=== PATIENT | female | born 1955 | race Caucasian/White ===

== ENCOUNTER 2022-05-21 17:44 | Emergency (ER) | payer MEDICARE, SELFPAY ==
[2022-05-21 17:58] VITALS: BP 159/79; PULSE 96; RESP 12; TEMP 37.3; O2SAT 94; BMI 25.3
--- NOTE | 2022-05-21 19:49 | ECG_ITS ---
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 Measurements Intervals [place] Rate: 79 P: -11 ME: 163 QRS: -10 QRSD: 93 T: 46 QT: 348 QTc: 399 Interpretive Statements SINUS RHYTHM No previous ECG available for comparison Electronically Signed On 05-22-2022 18:57:10 CDT by Fernando Gonzalez M.D. [id number]
--- NOTE | 2022-05-21 19:49 | CTR_ITS ---
PROCEDURE INFORMATION: Exam: CT Head Without Contrast Exam date and time: 05/21/2022 8:02 PM Age: 67 years old Clinical indication: Numbness / parasthesia; Bilateral; Patient HX: Tongue numbness, dizziness TECHNIQUE: Imaging protocol: Computed tomography of the head without contrast. Radiation optimization: All CT scans at this facility use at least one of these dose optimization techniques: automated exposure control; mA and/or kV adjustment per patient size (includes targeted exams where dose is matched to clinical indication); or iterative reconstruction. COMPARISON: No relevant prior studies available. RADIATION DOSE METRICS: Total DLP (mGy-cm): 847.24 FINDINGS: Brain: No hemorrhage. No edema. No significant white matter disease. No mass effect. Cerebral ventricles: No ventriculomegaly. Paranasal sinuses: Mucosal thickening of the left sphenoid sinus. The rest of the paranasal sinuses are well pneumatized. Mastoid air cells: Visualized mastoid air cells are well aerated. Bones/joints: Unremarkable. No acute fracture. Soft tissues: Unremarkable. Vasculature: Single midline vessel with wall calcifications noted in the anterior interhemispheric region between the frontal lobes which is suspected to reflect variant vascular anatomy/azygous VIRAJ. CT/CT head wo con* [id number] IMPRESSION: No acute intracranial abnormality.
--- NOTE | 2022-05-21 20:00 | W.ED.WEAKNES ---
HPI - Weakness General: Chief complaint: Weakness Stated complaint: mouth tingling episodes Time Seen by Provider: 05/21/22 19:46 Source: patient Mode of arrival: ambulatory Limitations: no limitations History of Present Illness: 67-year-old female states that she had an episode today roughly 2-3 o'clock where she had some numbness in her tongue and then it went to her hands. States it lasted roughly 5 minutes and then is resolved. States that since then she just had some slight fatigue and lethargy she denies any headache denies any focal weakness denies any change of her vision denies any more paresthesias. She denies worsening improving factors. Associated symptoms: Denies chest pain, chills, dysuria, easy bruising, fever(s), nausea or vomiting Review of Systems Const: Denies: fever(s), chills, body aches or change in appetite Eyes: Denies: blurry vision or eye discomfort ENMT: Denies: throat pain or dental pain Card: Denies: chest pain Resp: Denies: dyspnea GI: Denies: abdominal pain, nausea, vomiting or diarrhea : Denies: dysuria Musc: Denies: neck pain or back pain Skin/Breast: Denies: rash Neuro: Reports: sensory changes Psych: Denies: depression Brain/Lymph: Denies: easy bruising All/Imm: Denies: urticaria PFSH ED PFSH: Medical History (Updated 05/21/22 @ 21:20 by Robel Ulloa MD) No pertinent past medical history Social History (Updated 05/21/22 @ 20:01 by Robel Ulloa MD) Smoking and tobacco status: current every day smoker Physical Exam Const: COMMON NORMALS: no acute distress, patient oriented x3 and healthy appearing HENMT: COMMON NORMALS: normocephalic and atraumatic HEAD & SCALP: normocephalic and atraumatic Eye: COMMON NORMALS: Equal, round and reactive pupils present and EOMs intact bilaterally PUPIL: Yes Equal, round and reactive pupils present Neck/C-Spine: COMMON NORMALS: full ROM and supple Chest: COMMONS NORMALS: normal inspection of the chest and normal palpation of entire chest wall Resp: COMMON NORMALS: normal respiratory effort, No retractions, No use of accessory muscles and clear to auscultation bilaterally AUSCULTATION: clear to auscultation bilaterally Cardio: COMMON NORMALS: regular rate, regular rhythm and No murmurs present (Cardio) RATE: regular rate RHYTHM: regular rhythm GI: COMMON NORMALS: Normal to inspection, nondistended, normoactive bowel sounds present, Soft to palpation, non-tender and no masses PALPATION: Yes Soft to palpation Extremity: COMMON NORMALS: normal to inspection and full ROM Neuro: COMMON NORMALS: patient oriented x3, moves all extremities and no focal motor deficits Psych: COMMON NORMALS: mental status grossly normal, Normal thought process present and cooperative THOUGHT PROCESS: Normal thought process present Skin: COMMON NORMALS: no rashes or lesions noted and no wounds GENERAL SKIN EXAM: no rashes or lesions noted Course Vital Signs: Vital signs: Vital Signs Temperature 99.2 F 05/21/22 17:58 Pulse Rate 96 05/21/22 17:58 Respiratory Rate 12 05/21/22 17:58 Blood Pressure 159/79 05/21/22 17:58 Pulse Oximetry 94 05/21/22 17:58 MDM - Weakness Medical Decision Making Patient presents here with a short period of paresthesias completely resolved she has no neurologic symptoms currently her head CT blood work are all normal she is stable for discharge she is to follow-up with her PCP in 3 to 5 days return if worsening she understands agrees to plan. Lab Data : 05/21/22 20:15 05/21/22 20:[address] 05/21/22 19:49 IMPRESSION: No acute intracranial abnormality. Laboratory Results WBC 9.9 10^3/uL (4.0-10.0) 05/21/22 20:15 RBC 4.32 10^6/uL (4.1-5.3) 05/21/22 20:15 Hgb 13.7 g/dL (11.5-15.3) 05/21/22 20:15 Hct 38.7 % (37.0-47.0) 05/21/22 20:15 MCV 89.6 fl (81-99) 05/21/22 20:15 MCH 31.7 pg (28.0-34.0) 05/21/22 20:15 MCHC 35.4 g/dL (30.0-36.0) 05/21/22 20:15 RDW 13.5 % (12.1-15.1) 05/21/22 20:15 Plt Count 211 10^3/cmm (130-400) 05/21/22 20:15 MPV 10.7 fL (7.4-10.4) H 05/21/22 20:15 Neut % (Auto) 69.5 % 05/21/22 20:15 Lymph % (Auto) 22.3 % 05/21/22 20:15 [place] % (Auto) 7.3 % 05/21/22 20:15 Eos % (Auto) 0.3 % 05/21/22 20:15 Baso % (Auto) 0.3 % 05/21/22 20:15 Neut # (Auto) 6.91 10^3/uL (1.8-7.7) 05/21/22 20:15 Lymph # (Auto) 2.2 10^3/uL (0.8-4.8) 05/21/22 20:15 [place] # (Auto) 0.7 10^3/uL (0.2-0.9) 05/21/22 20:15 Eos # (Auto) 0.0 10^3/uL (0.0-0.8) 05/21/22 20:15 Baso # (Auto) 0.0 10^3/uL (0.0-0.1) 05/21/22 20:15 Nucleated RBC % (auto) 0 % 05/21/22 20:15 Nucleated RBCs # 0.0 /100WBC 05/21/22 20:15 Sodium 138 mmol/L (136-145) 05/21/22 20:15 Potassium 3.9 mmol/L (3.5-5.1) 05/21/22 20:15 Chloride 103 mmol/L (98-107) 05/21/22 20:15 Carbon Dioxide 22 mmol/L (22-29) 05/21/22 20:15 Anion Gap 16.9 (5-19) 05/21/22 20:15 BUN 20 mg/dL (8-23) 05/21/22 20:15 Creatinine 0.6 mg/dL (0.5-0.9) 05/21/22 20:15 GFR Calculation 100.3 mL/min (90-130) 05/21/22 20:15 Glucose 110 mg/dL (65-115) 05/21/22 20:15 Calculated Osmolality 289 mOsm/kg (285-295) 05/21/22 20:15 Calcium 9.5 mg/dL (8.5-10.5) 05/21/22 20:15 Total Bilirubin 0.2 mg/dL (0.15-1.2) 05/21/22 20:15 AST 23 U/L (0-32) 05/21/22 20:15 ALT 22 U/L (0-33) 05/21/22 20:15 Alkaline Phosphatase 108 IU/L (35-105) H 05/21/22 20:15 Total Protein 7.3 g/dL (6.6-8.7) 05/21/22 20:15 Albumin 4.3 g/dL (3.5-5.2) 05/21/22 20:15 Globulin 3.0 g/dL (1.3-4.6) 05/21/22 20:15 EKG Data EKG 1: I personally reviewed and interpreted this EKG as follows: EKG interpretation date: 05/21/22 EKG interpretation time: 20:38 Interpretation: nsr hr [address] or t wave abnormalities qrs 93 qtc 382 Discharge Plan Discharge Patient Disposition: Home Clinical Impression: Paresthesia Discharge Orders: Discharge ED (Routine); Ordered 05/21/22 Ordered By: Robel Ulloa Discharge Diet: Advance as tolerated Discharge Activity: Resume usual activity Patient Instructions: Paresthesia (ED) Coding Level of Care Code ED Vp [employer] Digital Marketing for Chg Fwd Exam Comprehensive
[2022-05-21 20:26] LABS: Basophils % 0.3 %; Eosinophils % 0.3 %; Hematocrit 38.7 % (37.0-47.0); Hemoglobin 13.7 g/dL (11.5-15.3); Lymphocytes # 2.2 10^3/uL (0.8-4.8); Lymphocytes % 22.3 %; Mean Corpuscular HGB Conc 35.4 g/dL (30.0-36.0); Mean Corpuscular Hemoglobin 31.7 pg (28.0-34.0); Mean Corpuscular Volume 89.6 fl (81-99); Mean Platelet Volume 10.7 fL (7.4-10.4); Monocytes # 0.7 10^3/uL (0.2-0.9); Monocytes % 7.3 %; Neutrophils # 6.91 10^3/uL (1.8-7.7); Neutrophils % 69.5 %; Nucleated Red Blood Cells % 0 %; Platelet Count 211 10^3/cmm (130-400); Red Blood Count 4.32 10^6/uL (4.1-5.3); Red Cell Distribution Width 13.5 % (12.1-15.1); White Blood Count 9.9 10^3/uL (4.0-10.0)
[2022-05-21 20:48] LABS: Alanine Aminotransferase 22 U/L (0-33); Albumin Level 4.3 g/dL (3.5-5.2); Alkaline Phosphatase 108 IU/L (35-105); Anion Gap 16.9 (5-19); Aspartate Amino Transferase 23 U/L (0-32); Blood Urea Nitrogen 20 mg/dL (8-23); Calcium 9.5 mg/dL (8.5-10.5); Carbon Dioxide 22 mmol/L (22-29); Chloride 103 mmol/L (98-107); Glomerular Filtration Rate 100.3 mL/min (90-130); Glucose 110 mg/dL (65-115); Osmolality Calculated 289 mOsm/kg (285-295); Potassium 3.9 mmol/L (3.5-5.1); Sodium 138 mmol/L (136-145); Total Bilirubin 0.2 mg/dL (0.15-1.2); Total Protein 7.3 g/dL (6.6-8.7)
== END 2022-05-21 21:31 | disposition home or self-care (01) ==
PROVIDERS: Emergency Provider Emergency Medicine
DX: R20.2 Paresthesia of skin (principal); F17.210 Nicotine dependence, cigarettes, uncomplicated
CPT/HCPCS: 70450; 80053; 85025; 93005; 99283

== ENCOUNTER → 2022-09-24 11:34 | Outpatient (BNVA) | payer MEDICARE, SELFPAY | PROVIDERS: PCP Nurse Practitioner Family; Visit Provider Nurse Practitioner Family | DX: I10 Essential (primary) hypertension (principal) | CPT/HCPCS: 80053; 80061 ==

== ENCOUNTER → 2023-01-09 08:44 | Outpatient (BNVA) | payer MEDICARE, SELFPAY | PROVIDERS: PCP Nurse Practitioner Family; Visit Provider Nurse Practitioner Family | DX: I10 Essential (primary) hypertension (principal); E78.5 Hyperlipidemia, unspecified; H65.00 Acute serous otitis media, unspecified ear | CPT/HCPCS: 80053; 80061 ==

== ENCOUNTER → 2023-01-16 09:07 | Outpatient (BNVA) | payer MEDICARE, SELFPAY | PROVIDERS: PCP Nurse Practitioner Family; Visit Provider Nurse Practitioner Family | DX: R73.09 Other abnormal glucose (principal); E78.5 Hyperlipidemia, unspecified | CPT/HCPCS: 83036 ==

== ENCOUNTER → 2023-03-13 09:40 | Outpatient (BNVA) | payer MEDICARE, SELFPAY | PROVIDERS: PCP Nurse Practitioner Family; Visit Provider Nurse Practitioner Family | DX: M79.672 Pain in left foot (principal); I10 Essential (primary) hypertension; E78.5 Hyperlipidemia, unspecified | CPT/HCPCS: 80061 ==

== ENCOUNTER 2023-03-17 09:21 | Outpatient (CLI) | payer MEDICARE, SELFPAY ==
--- NOTE | 2023-03-17 09:31 | XR_ITS ---
WS: [id number] Exam: XR foot LT min 3V* [id number] Date/Time of Exam: 03/17/2023 9:48 AM Reason For Exam: M79.672 - Pain in left foot No fracture or dislocation. Mild bunion. Small heel spurs noted. Soft tissues are unremarkable. XR/XR foot LT min 3V* [id number] IMPRESSION: 1. Mild bunion. 2. No fracture or other significant finding.
== END 2023-03-17 09:22 | disposition home or self-care (01) ==
LOC: RAD 09:26
PROVIDERS: PCP Nurse Practitioner Family; Visit Provider Nurse Practitioner Family
DX: M79.672 Pain in left foot (principal); M21.612 Bunion of left foot
CPT/HCPCS: 73630

== ENCOUNTER → 2023-07-03 08:38 | Outpatient (BNVA) | payer MEDICARE, SELFPAY | PROVIDERS: PCP Nurse Practitioner Family; Visit Provider Nurse Practitioner Family | DX: I10 Essential (primary) hypertension (principal); E78.5 Hyperlipidemia, unspecified | CPT/HCPCS: 80053; 80061 ==

== ENCOUNTER → 2023-10-08 08:55 | Outpatient (BNVA) | payer MEDICARE, SELFPAY | PROVIDERS: PCP Nurse Practitioner Family; Visit Provider Nurse Practitioner Family | DX: I10 Essential (primary) hypertension (principal); E78.5 Hyperlipidemia, unspecified | CPT/HCPCS: 80053; 80061 ==

== ENCOUNTER → 2024-04-22 08:35 | Outpatient (BNVA) | payer MEDICARE, SELFPAY | PROVIDERS: PCP Nurse Practitioner Family; Visit Provider Nurse Practitioner Family | DX: I10 Essential (primary) hypertension (principal) | CPT/HCPCS: 80053; 80061 ==

== ENCOUNTER → 2024-10-14 11:43 | Outpatient (BNVA) | payer MEDICARE, SELFPAY | PROVIDERS: PCP Nurse Practitioner Family; Visit Provider Nurse Practitioner Family | DX: I10 Essential (primary) hypertension (principal) | CPT/HCPCS: 80053; 80061 ==

== ENCOUNTER 2024-12-23 09:49 | Outpatient (CLI) | payer MEDICARE, SELFPAY ==
--- NOTE | 2024-12-23 10:30 | USCV_ITS ---
Anastasia Bourne Age: 69 Gender: F : 1955 Exam Date: 12/23/2024 09:58 Ordering Phys: Esther Christopher-Sameera SANTAMARIA Technologist: CT Exam Location: [facility] [place] Indication: Risk Factors: Previous Vascular Surgery: Right Brachial BP: / Left Brachial BP: / Right Left Velocity (cm/s) Spectral Plaque Velocity (cm/s) Spectral Plaque Syst/Diast Broadening Syst/Diast Broadening 82.60/ 15.40 Prox CCA 88.90 / 22.10 78.80/ 16.60 Mid CCA 96.90 / 25.30 82.20/ 20.20 Distal CCA 76.20 / 22.10 78.90/ 21.70 Prox ICA 106.10/ 28.30 85.10/ 19.60 Mid ICA 108.00/ 24.50 74.70/ 21.50 Distal ICA 56.50 / 18.00 114.00 ECA 123.20 1.00 ICA/CCA 1.40 Retrograde Vertebral Antegrade 33.30/ 12.70 cm/s 60.10/ 12.60 cm/s Bi Subclavian Bi 96.30 123.2 0 FINDINGS some stenosis in left bulb CONCLUSIONS Right ICA stenosis <50%. Mild atheromatous plaque right carotid bulb/ICA. Left ICA stenosis <50%. Moderate atheromatous plaque left carotid bulb/ICA. Retrograde Doppler flow noted in the right vertebral artery compatible with subclavian steal. This could be further evaluated neck and chest CTA. Normal antegrade Doppler flow noted in the left vertebral artery. Guzman Joyner MD (Electronically Signed) Final Date: 23 December 2024 12:38 S
== END 2024-12-23 09:50 | disposition home or self-care (01) ==
PROVIDERS: PCP Nurse Practitioner Family; Visit Provider Nurse Practitioner Family
DX: R09.89 Other specified symptoms and signs involving the circulatory and respiratory systems (principal); I65.23 Occlusion and stenosis of bilateral carotid arteries; R93.89 Abnormal findings on diagnostic imaging of other specified body structures
CPT/HCPCS: 93880

== ENCOUNTER 2025-01-25 09:02 | Emergency (ER) | payer MEDICARE, SELFPAY ==
[2025-01-25] VITALS (8 sets, daily range): BP systolic 141–182; BP diastolic 73–77; PULSE 81–99; RESP 18; TEMP 36.8; O2SAT 97–99; BMI 26.6
--- NOTE | 2025-01-25 09:26 | ECG_ITS ---
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 Measurements Intervals [place] Rate: 84 P: 50 [place]: 168 QRS: 67 QRSD: 88 T: 8 QT: 344 QTc: 408 Interpretive Statements SINUS RHYTHM Compared to ECG 05/21/2022 20:38:12 No significant changes Electronically Signed On 01-28-2025 18:09:11 IN PROCESS INSPECTOR by Fernando Gonzalez M.D. [email or web address] [id number]
--- NOTE | 2025-01-25 09:26 | XR_ITS ---
WS: [id number] XR chest 1V portable [id number] REASON FOR EXAM: weakness FINDINGS: Mild tortuosity of the thoracic aorta. Normal heart size. Calcified granulomatous disease bilaterally. No acute pulmonary parenchymal or pleural abnormality is identified. Mild degenerative spondylosis in the mid and lower thoracic spine. XR/XR chest 1V portable [id number] IMPRESSION: No acute chest abnormality.
[2025-01-25 09:28] LABS: Basophils # 0.1 10^3/uL (0.0-0.1); Basophils % 0.6 %; Eosinophils % 0.2 %; Hematocrit 40.7 % (36-47); Lymphocytes # 1.6 10^3/uL (0.8-4.8); Lymphocytes % 13.5 %; Mean Corpuscular HGB Conc 33.7 g/dL (30-55); Mean Corpuscular Hemoglobin 30.7 pg (27-33); Mean Corpuscular Volume 91.3 fl (85-98); Mean Platelet Volume 9.9 fL (7.4-10.4); Monocytes # 0.6 10^3/uL (0.2-0.9); Monocytes % 5.1 %; Neutrophils # 9.63 10^3/uL (1.8-7.7); Neutrophils % 80.2 %; Nucleated Red Blood Cells % 0 %; Platelet Count 252 10^3/cmm (157-399); Red Blood Count 4.46 10^6/uL (3.85-5.65); Red Cell Distribution Width 13.8 % (12.1-15.1)
[2025-01-25 09:48] LABS: Alanine Aminotransferase 20 U/L (0-33); Albumin Level 4.3 g/dL (3.5-5.2); Alkaline Phosphatase 131 U/L (35-105); Anion Gap 16.4 (5-19); Aspartate Amino Transferase 21 U/L (0-32); Blood Urea Nitrogen 11 mg/dL (8-23); Calcium 9.2 mg/dL (8.5-10.5); Carbon Dioxide 20 mmol/L (22-29); Chloride 104 mmol/L (98-107); Creatinine Clr Calc Pharmacy 73.0428; Glomerular Filtration Rate 83.5 mL/min (90-130); Glucose 182 mg/dL (65-115); Lipase 25 U/L (13-60); Osmolality Calculated 288 mOsm/kg (285-295); Potassium 3.4 mmol/L (3.5-5.1); Sodium 137 mmol/L (136-145); Total Bilirubin 0.2 mg/dL (0.15-1.2); Total Protein 7.3 g/dL (6.6-8.7)
[2025-01-25 09:50] LABS: INR 0.88 (0.8-1.2)
[2025-01-25] MEDS: ondansetron 2 mg/ML SDV 2 mL 4 MG IVP (09:50)
--- NOTE | 2025-01-25 09:58 | ED_ITS ---
HPI - General Adult 2 General: Chief complaint: Nausea/Vomiting/Diarrhea Stated complaint: nausea, chills Time Seen by Provider: 01/25/25 09:14 Source: patient Mode of arrival: ambulatory Limitations: no limitations History of Present Illness: 69-year-old female who states that she h as not felt well over the last 3 days. States she has had fatigue malaise states she has had bodyaches and is feeling very tired. She did have recent carotid surgery 2 weeks ago she denies any headaches she denies chest pain denies any shortness of breath she denies any worse improving factors. Associated symptoms: Reports malaise; Deny chest pain, dyspnea, headache(s), nausea, rash or vomiting Related Data Home Medications ?Medication ?Instructions ?Recorded ?Confirmed aspirin 81 mg tablet,delayed 81 mg PO DAILY 12/12/24 0 01/25/25 release (Adult Low Dose Aspirin) amlodipine 5 mg tablet 10 mg PO DAILY 01/23/2504/16 clopidogrel 75 mg tablet 75 mg PO DAILY 01/23/2504/16 metoprolol tartrate 25 mg tablet 25 mg PO BID 01/23/25 01/25/25 ondansetron 4 mg disintegrating 4 mg PO Q6H PRN Nausea And Vomiting 01/23/25 01/25/25 tablet oxycodone-acetaminophen 5 mg-325 1 tab PO Q6H PRN Pain 01/23/25 01/25/25 mg tablet rosuvastatin 40 mg tablet 40 mg PO DAILY 01/23/2504/16 Previous Rx's ?Medication ?Instructions ?Recorded fluticasone furoate 27.5 2 spray intranasal DAILY #5. 9 mL 12/12/24 mcg/actuation nasal spray,suspension (Flonase Sensimist) famotidine 40 mg tablet (Pepcid) 40 mg PO DAILY #30 ta bs 01/23/25 fluoxetine 20 mg capsule (Prozac) 20 mg PO DAILY #30 c aps 01/23/25 Allergies Allergy/AdvReac Type Severity Reaction Status Date / Time No Known Allergies Allergy Verified 01/23/25 10:07 Review of Systems 2 Const: Reports: chills, body aches, fatigue and malaise; Denies: fever(s) or change in appetite Eyes: Denies: blurry vision or eye discomfort ENMT: Denies: throat pain or dental pain Card: Denies: chest pain Resp: Denies: dyspnea GI: Denies: abdominal pain, nausea, vomiting or diarrhea Musc: Denies: neck pain or back pain Skin/Breast: Denies: rash Neuro: Denies: headache(s) PFSH ED 2 PFSH: Medical History Hyperlipidemia Hypertension No pertinent past medical history Surgical History (Updated 01/23/25 @ 10:41 by ROSALIO Sylvester) H/O transcarotid artery revascularization (TCAR) left side Family History Sister Cancer Diabetes Family/Other Hypertension Mother Diabetes Denies family history of CAD (coronary artery disease) Hyperlipidemia Chronic kidney disease (CKD) Bleeding disorder Social History Smoking and tobacco/nicotine status: current every day tobacco/nicotine user Quit status (tobacco/nicotine): considering quitting Alcohol intake: never Substance/Drug Use: never Adopted: No Caregiver/support person: No Lives independently: Yes Marital status: / service: No Current occupational status: retired Do you think of yourself as: Straight/Heterosexual Current gender identity: Female Physical Exam 2 Const: COMMON NORMALS: no acute distress, patient oriented x3 and healthy appearing HENMT: COMMON NORMALS: normocephalic and atraumatic HEAD & SCALP: n ormocephalic and atraumatic Neck/C-Spine: COMMON NORMALS: full ROM and supple Chest: COMMONS NORMALS: normal inspection of the chest Resp: COMMON NORMALS: normal respiratory effort Cardio: COMMON NORMALS: regular rate, regular rhythm and No murmurs present (Cardio) RATE: regular rate RHYTHM: regular rhythm GI: COMMON NORMALS: Normal to inspection, nondistended, normoactive bowel sounds present, Soft to palpation, non-tender and no masses PALPATION: Yes Soft to palpation Extremity: COMMON NORMALS: normal to inspection and full ROM Neuro: COMMON NORMALS: patient oriented x3, moves all extremities and no focal motor deficits Psych: COMMON NORMALS: mental status grossly normal, Normal thought process present and cooperative THOUGHT PROCESS: Normal thought process present Skin: COMMON NORMALS: no rashes or lesions noted and no wounds GENERAL SKIN EXAM: no rashes or lesions noted Course 2 Vital Signs: Vital signs: Vital Signs Temperature 98.2 F 01/25/25 09:10 Pulse Rate 81 01/25/25 12:49 Respiratory Rate 18 01/25/25 09:10 Blood Pressure 154/77 01/25/25 12:49 Pulse Oximetry 98 01/25/25 12:49 Oxygen Delivery Me thod Room Air 01/25/25 09:10 MDM - General Adult Medical Decision Making Patient presents here with general feeling of being unwell she has been well- appearing here vitals are normal all her blood work came back normal she stable for discharge she is follow-up with PCP return if worsening she understands agrees to plan. Medical Records I reviewed the patient's medical records. Lab Data I reviewed the patient's lab results. 01/25/25 09:16 01/25/25 09:16 Radiology Impressions Chest X-Ray 01/25/25 09:26 IMPRESSION: No acute chest abnormality. Laboratory Results WBC 12.00 10^3/uL (3.29-11.43) H 01/25/25 09:16 RBC 4.46 10^6/uL (3.85-5.65) 01/25/25 09:16 Hgb 13.70 g/dL (11.27-16.99) 01/25/25 09:16 Hct 40.7 % (36-47) 01/25/25 09:16 MCV 91.3 fl (85-98) 01/25/25 09:16 MCH 30.7 pg (27-33) 01/25/25 09:16 MCHC 33.7 g/dL (30-55) 01/25/25 09:16 RDW 13.8 % (12.1-15.1) 01/25/25 09:16 Plt Count 252 10^3/cmm (157-399) 01/25/25 09:16 MPV 9.9 fL (7.4-10.4) 01/25/25 09:16 Neut % (Auto) 80.2 % 01/25/25 09:16 Lymph % (Auto) 13.5 % 01/25/25 09:16 [place] % (Auto) 5.1 % 01/25/25 09:16 Eos % (Auto) 0.2 % 01/25/25 09:16 Baso % (Auto) 0.6 % 01/25/25 09:16 Neut # (Auto) 9.63 10^3/uL (1.8-7.7) H 01/25/25 09:16 Lymph # (Auto) 1.6 10^3/uL (0.8-4.8) 01/25/25 09:16 [place] # (Auto) 0.6 10^3/uL (0.2-0.9) 01/25/25 09:16 Eos # (Auto) 0.0 10^3/uL (0.0-0.8) 01/25/25 09:16 Baso # (Auto) 0.1 10^3/uL (0.0-0.1) 01/25/25 09:16 Nucleated RBC % (auto) 0 % 01/25/25 09:16 Nucleated RBCs # 0.0 /100WBC 01/25/25 09:16 PT 12.60 SECONDS (12.1-14.9) 01/25/25 09:16 INR 0.88 (0.8-1.2) 01/25/25 09:16 Sodium 137 mmol/L (136-145) 01/25/25 09:16 Potassium 3.4 mmol/L (3.5-5.1) L 01/25/25 09:16 Chloride 104 mmol/L (98-107) 01/25/25 09:16 Carbon Dioxide 20 mmol/L (22-29) L 01/25/25 09:16 Anion Gap 16.4 (5-19) 01/25/25 09:16 BUN 11 mg/dL (8-23) 01/25/25 09:16 Creatinine 0.7 mg/dL (0.5-0.9) 01/25/25 09:16 GFR Calculation 83.5 mL/min (90-130) L 01/25/25 09:16 Glucose 182 mg/dL (65-115) H 01/25/25 09:16 Calculated Osmolality 288 mOsm/kg (285-295) 01/25/25 09:16 Calcium 9.2 mg/dL (8.5-10.5) 01/25/25 09:16 Total Bilirubin 0.2 mg/dL (0.15-1.2) 01/25/25 09:16 AST 21 U/L (0-32) 01/25/25 09:16 ALT 20 U/L (0-33) 01/25/25 09:16 Alkaline Phosphatase 131 U/L (35-105) H 01/25/25 09:16 Troponin T Baseline 7 ng/L (0-10) 01/25/25 09:16 Troponin T 120 Minute 7.94 ng/L (0-10) 01/25/25 11:25 Delta Troponin T 0.94 ABS# (0-10) 01/25/25 11:25 Total Protein 7.3 g/dL (6.6-8.7) 01/25/25 09:16 Albumin 4.3 g/dL (3.5-5.2) 01/25/25 09:16 Globulin 3.0 g/dL (1.3-4.6) 01/25/25 09:16 Lipase 25 U/L (13-60) 01/25/25 09:16 TSH 3.73 uIU/mL (0.27-4.20) 01/25/25 09:16 Urine Color Yellow (Yellow) 01/25/25 11:20 Urine Appearance Clear (CLEAR) 01/25/25 11:20 Urine pH 7.0 (5-7) 01/25/25 11:20 Ur Specific [place] 1.011 (1.005-1.030) 01/25/25 11:20 Urine Protein Negative (Negative) 01/25/25 11:20 Urine Glucose (UA) Negative (Normal) 01/25/25 11:20 Urine Ketones Negative (Negative) 01/25/25 11:20 Urine Blood 1+ (Negative) A 01/25/25 11:20 Urine Nitrate Negative (Negative) 01/25/25 11:20 Urine Bilirubin Negative (Negative) 01/25/25 11:20 Urine Urobilinogen 1.0 mg/dL (Negative) 01/25/25 11:20 Ur Leukocyte Esterase Negative (Negative) 01/25/25 11:20 Urine RBC 5-10 /hpf (0-2) H 01/25/25 11:20 Urine WBC 0-4 /hpf (0-5) H 01/25/25 11:20 Ur Squamous Epith Cells 0-4 /hpf (0-5) H 01/25/25 11:20 Amorphous Sediment Not Reportable 01/25/25 11:20 Urine Bacteria None /hpf (NONE) 01/25/25 11:20 Urine Mucus 1+ /hpf 01/25/25 11:20 Influenza A (PCR) Negative (Negative) 01/25/25 09:48 Influenza Type B (PCR) Negative (Negative) 01/25/25 09:48 RSV (PCR) Negative (Negative) 01/25/25 09:48 SARS-CoV-2 (PCR) Negative (Negative) 01/25/25 09:48 All radiology interpretation(s) finalized by discharge EKG Data EKG 1: I personally reviewed and interpreted this EKG as follows: EKG interpretation date: 01/25/25 EKG interpretation time: 09:42 Interpretation: nsr hr [address] elevation qrs 88 qtc 385 Computer generated interpretation: Chest X-Ray 01/25/25 09:26 IMPRESSION: No acute chest abnormality. Discharge Plan Discharge Patient Disposition: Home Clinical Impression: Vomiting, Weakness Condition: Stable Prescriptions: No Action amlodipine 5 mg tablet 10 mg PO DAILY clopidogrel 75 mg tablet 75 mg PO DAILY metoprolol tartrate 25 mg tablet 25 mg PO BID Rx Instructions: take one tab by mouth twice daily as needed for BP elevated >160/100 ondansetron 4 mg tablet,disintegrating 4 mg PO Q6H PRN (Reason: Nausea And Vomiting) rosuvastatin 40 mg tablet 40 mg PO DAILY oxycodone-acetaminophen 5-325 mg tablet 1 tab PO Q6H PRN (Reason: Pain) famotidine [Pepcid] 40 mg tablet 40 mg PO DAILY Qty: 30 0RF fluoxetine [Prozac] 20 mg capsule 20 mg PO DAILY Qty: 30 0RF aspirin [Adult Low Dose Aspirin] 81 mg tablet,delayed release (DR/EC) 81 mg PO DAILY Flonase Sensimist 27.5 mcg/actuation spray,suspension 2 spray intranasal DAILY Qty: 5.9 2RF Rx Instructions: into each nostril Discharge Orders: Discharge ED (Routine); Ordered 01/25/25 Ordered By: Robel Ulloa Referrals: Esther Christopher FNP [Primary Care Provider] - Discharge Diet: Advance as tolerated Discharge Activity: Resume usual activity Patient Instructions: Acute Nausea and Vomiting (ED), Weakness (ED) Print Language: Maori Coding Level of Care Code ED Medical Insurance Biller for Johnny Patel
[2025-01-25 10:06] LABS: Thyroid Stimulating Hormone 3.73 uIU/mL (0.27-4.20); Troponin(5th) Baseline 7 ng/L (0-10)
--- NOTE | 2025-01-25 11:13 | ECG_ITS ---
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 Measurements Intervals [place] Rate: 88 P: 66 [place]: 181 QRS: -4 QRSD: 89 T: 62 QT: 368 QTc: 446 Interpretive Statements SINUS RHYTHM WITH OCCASIONAL VENTRICULAR PREMATURE COMPLEXES Compared to ECG 01/25/2025 09:42:48 Ventricular premature complex(es) now present Electronically Signed On 01-28-2025 19:41:58 POWER TRUCK DRIVER by Fernando Gonzalez M.D. [id number] [id number]
[2025-01-25 11:20] LABS: Influenza A NEGATIVE (Negative); Influenza B NEGATIVE (Negative); Respiratory Syncytial Virus Ce NEGATIVE (Negative); SARS-CoV-2 PCR NEGATIVE (Negative)
[2025-01-25 12:15] LABS: Troponin 5 2HR 7.94 ng/L (0-10); Troponin 5 2HR Delta 0.94 ABS# (0-10)
[2025-01-25 12:23] LABS: Bilirubin Urine Negative (Negative); Blood Urine 1+ (Negative); Glucose Urine UA Negative (Normal); Ketones Urine Negative (Negative); Leukocyte Esterase Urine Negative (Negative); Nitrate Urine Negative (Negative); Protein Urine Negative (Negative); Specific Gravity, Urine 1.011 (1.005-1.030); Urine Appearance Clear (CLEAR); Urine Color Yellow (Yellow)
[2025-01-25 12:47] LABS: Add Urine Microscopic? YES
[2025-01-25 12:48] LABS: Squamous Epithelial Cell Urine 0-4 /hpf (0-5); WBC Urine 0-4 /hpf (0-5)
[2025-01-25 12:49] LABS: Mucus Urine 1+ /hpf
[2025-01-25 12:50] LABS: Add Urine Culture? No
== END 2025-01-25 12:50 | disposition home or self-care (01) ==
PROVIDERS: Emergency Provider Emergency Medicine; PCP Nurse Practitioner Family
DX: R11.10 Vomiting, unspecified (principal); R53.1 Weakness; Z79.02 Long term (current) use of antithrombotics/antiplatelets; Z79.82 Long term (current) use of aspirin; Z11.52 Encounter for screening for COVID-19; Z72.0 Tobacco use; E78.5 Hyperlipidemia, unspecified; I10 Essential (primary) hypertension
CPT/HCPCS: 36415; 71045; 80053; 81001; 83690; 84443; 84484; 85025; 85610; 87637; 93005; 96374; 99285; J2405

== ENCOUNTER → 2025-02-06 09:23 | Outpatient (BNVA) | payer MEDICARE, SELFPAY | PROVIDERS: PCP Nurse Practitioner Family; Visit Provider Nurse Practitioner Family | DX: R73.09 Other abnormal glucose (principal); E55.9 Vitamin D deficiency, unspecified; R20.2 Paresthesia of skin; I10 Essential (primary) hypertension; R53.83 Other fatigue; N39.0 Urinary tract infection, site not specified | CPT/HCPCS: 80053; 81000; 82306; 82607; 83036; 83735; 85025; 87086 ==

== ENCOUNTER 2025-02-16 09:45 | Outpatient (CLI) | payer MEDICARE, SELFPAY ==
--- NOTE | 2025-02-16 09:53 | XR_ITS ---
WS: [id number] Exam: XR thoracic spine 3V* [id number] Date/Time of Exam: 02/16/2025 9:57 AM Reason For Exam: M54.9 - Dorsalgia, unspecified No fracture noted. Mild spondylosis. Normal paraspinal soft tissues. Slight levoscoliosis. XR/XR thoracic spine 3V* [id number] IMPRESSION: 1. No fracture or malalignment. Minimal degenerative change and slight scoliosi s.
== END 2025-02-16 09:46 | disposition home or self-care (01) ==
PROVIDERS: PCP Nurse Practitioner Family; Visit Provider Nurse Practitioner Family
DX: M47.894 Other spondylosis, thoracic region (principal)
CPT/HCPCS: 72072

== ENCOUNTER → 2025-03-29 08:52 | Outpatient (BNVA) | payer MEDICARE, SELFPAY | PROVIDERS: PCP Nurse Practitioner Family; Visit Provider Nurse Practitioner Family | DX: I10 Essential (primary) hypertension (principal); E55.9 Vitamin D deficiency, unspecified | CPT/HCPCS: 80053; 80061; 82306 ==

== ENCOUNTER → 2025-07-04 09:27 | Outpatient (BNVA) | payer MEDICARE, SELFPAY | PROVIDERS: PCP Nurse Practitioner Family; Visit Provider Nurse Practitioner Family | DX: I10 Essential (primary) hypertension (principal); E55.9 Vitamin D deficiency, unspecified | CPT/HCPCS: 80053; 80061; 82306 ==

== ENCOUNTER → 2025-10-03 09:26 | Outpatient (BNVA) | payer MEDICARE, SELFPAY | PROVIDERS: PCP Nurse Practitioner Family; Visit Provider Nurse Practitioner Family | DX: E55.9 Vitamin D deficiency, unspecified (principal); I10 Essential (primary) hypertension | CPT/HCPCS: 80053; 80061; 82652 ==